=== PATIENT | male | born 2000 | race Caucasian/White ===

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

== ENCOUNTER 2021-02-12 20:14 | Emergency (ER) | payer SELFPAY ==
[~2021-02-12 20:14] MED LIST: Lactated Ringer's 1,000 ML BAG ONE
[2021-02-12] MEDS ORDERED: Ondansetron PF 4 MG/2 ML Vial ONE (20:58)
[2021-02-12 21:28] LABS: #Basophils 0.1 thou/uL (0.0-0.2); #Lymphocytes 2.7 thou/uL (1.20-3.40); #Monocytes 0.7 thou/uL (0.11-0.59); #Neutrophils 13.9 thou/uL (1.40-6.50); %Basophils 0.6 % (0.0-1.0); %Eosinophils 0.1 % (0.0-10.0); %Lymphocytes 15.3 % (28.0-48.0); %Monocytes 4.2 % (0.0-4.0); %Neutrophils 79.8 % (31.0-61.0); Hemoglobin 20.5 g/dL (14.0-18.0); Mean Corpuscular HGB CONC 35.3 g/dL (32.0-36.0); Mean Corpuscular Hemoglobin 29.8 pg (25.0-35.0); Mean Corpuscular Volume 84.4 fL (78.0-98.0); Mean Platelet Volume 8.7 fL (7.4-10.4); Platelet Count 358 thou/uL (130-400); RBC Distribution Width 10.8 % (11.5-14.5); Red Blood Cell (RBC) Count 6.87 mill/uL (4.00-5.20); White Blood Cell (WBC) Count 17.4 thou/uL (4.8-10.8)
[2021-02-12 21:31] LABS: ALT (SGPT) 52 U/L (8-55); AST (SGOT) 21 U/L (10-45); Albumin 5.8 g/dL (3.5-5.0); Alkaline Phosphatase 128 U/L (50-130); Anion Gap 27 mmol/L (10-20); BUN (Urea Nitrogen) 45 mg/dL (8.4-21.0); Bilirubin, Total 2.2 mg/dL (0.2-1.2); Calc. Creatinine Clearance 0 mL/min (70-130); Calcium 11.5 mg/dL (7.8-10.44); Carbon Dioxide 23 mmol/L (22-29); Chloride 87 mmol/L (98-107); Globulin 4.4 g/dL (2.4-3.5); Glucose 157 mg/dL (70-105); Lipase 28 U/L (8-78); Potassium 3.6 mmol/L (3.5-5.1); Protein, Total 10.2 g/dL (6.0-8.3); Sodium 133 mmol/L (136-145)
[2021-02-12 22:51] LABS: Bilirubin Small (Negative); Blood, Urine Negative (Negative); Glucose, Urine (Dipstick) Negative (Negative); Ketone, Urine 40 mg/dL (Negative); Leukocyte Negative (Negative); Nitrite Negative (Negative); Protein, Urine (Dipstick) 30 mg/dL (Neg-Trace); Urobilinogen 0.2 mg/dL (Less than 2)
[2021-02-12 22:54] LABS: Clarity Hazy (Clear)
[2021-02-12 22:57] LABS: Specific Gravity, Urine 1.025 (1.002-1.036)
[2021-02-12 23:03] LABS: Bacteria/HPF Rare-Few HPF (None Seen); RBC/HPF 0-3 HPF (0-3); WBC/HPF 0-3 HPF (0-3)
[2021-02-12 23:04] LABS: Calcium Oxalate Crystals 2+ HPF (None Seen)
[2021-02-12 23:33] LABS: ALT (SGPT) 43 U/L (8-55); AST (SGOT) 18 U/L (10-45); Albumin 4.7 g/dL (3.5-5.0); Alkaline Phosphatase 100 U/L (50-130); Anion Gap 19 mmol/L (10-20); BUN (Urea Nitrogen) 38 mg/dL (8.4-21.0); CK (CPK) 63 U/L (30-200); Calc. Creatinine Clearance 0 mL/min (70-130); Carbon Dioxide 27 mmol/L (22-29); Chloride 93 mmol/L (98-107); Globulin 3.3 g/dL (2.4-3.5); Glucose 101 mg/dL (70-105); Potassium 3.7 mmol/L (3.5-5.1); Sodium 135 mmol/L (136-145)
== END 2021-02-13 00:04 | disposition home or self-care (01) ==
LOC: MADERS 20:14
DX: E86.0 Dehydration (principal); N17.9 Acute kidney failure, unspecified; R71.8 Other abnormality of red blood cells; F17.290 Nicotine dependence, other tobacco product, uncomplicated
CPT/HCPCS: 80053; 81003; 81015; 82550; 83690; 85025; 96374; J2405; J7120